=== PATIENT | male | born 1995 | race Two or more races ===

== ENCOUNTER 2017-12-01 04:42 | Emergency (ER) | payer OTHER | END 2017-12-01 05:52 | disposition home or self-care (01) | LOC: M ED 04:42 | DX: J40 Bronchitis, not specified as acute or chronic (principal); Z87.891 Personal history of nicotine dependence | CPT/HCPCS: 71046 ==

== ENCOUNTER 2019-04-11 06:25 | Emergency (ER) | payer OTHER ==
[~2019-04-11] VITALS: Ht 170.2 cm; Wt 82.7 kg
[~2019-04-11 06:25] MED LIST: PRED20TA PO; TESS100C PO; VENTAER INH; ZITHTAB PO
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
[2019-04-11] MEDS ORDERED: ACETAMINOPHEN 325 MG TAB PO ONE (08:00)
[2019-04-11] MEDS ORDERED: ONDANSETRON 4 MG ORAL DISINTEGRATING TAB (Q0162 PER 1MG) PO ONE (08:00)
[2019-04-11] MEDS ORDERED: IBUP-1022 PO (08:09)
[2019-04-11] MEDS ORDERED: ONDA4TAB6 PO (08:09)
[2019-04-11 08:16] VITALS: BP 143/98
== END 2019-04-11 08:39 | disposition home or self-care (01) ==
LOC: M ED 06:25
DX: S06.0X0A Concussion without loss of consciousness, initial encounter (principal); V49.40XA Driver injured in collision with unspecified motor vehicles in traffic accident, initial encounter; Y93.9 Activity, unspecified; Y99.9 Unspecified external cause status; F17.200 Nicotine dependence, unspecified, uncomplicated; Z79.899 Other long term (current) drug therapy
CPT/HCPCS: 70450; 99283; Q0162